=== PATIENT | female | born 1990 | race Caucasian/White ===

== ENCOUNTER 2020-01-05 12:02 | Inpatient (IN) | payer MEDICAID ==
[~2020-01-05] VITALS: Ht 172.7 cm; Wt 79.4 kg
[2020-01-26 20:43] VITALS: BP 123/81; Ht 172.7 cm; Wt 79.4 kg
[2020-01-26 21:20] LABS: HEMATOCRIT 27.1 % (36.0-48.0); HEMOGLOBIN 8.6 g/dL (12-16); MCH 25.7 pg (26.0-34.0); MCHC 31.7 g/dL (31.0-37.0); MCV 81.1 fL (80.0-100.0); MEAN PLATELET VOLUME 10.6 fL (7.4-10.4); RBC 3.34 10x6/uL (4.00-5.40); RDW 15.4 % (11.5-14.5); WBC 8.2 10x3/uL (4.8-10.8)
[2020-01-26 21:30] LABS: UDS - AMPHET NEGATIVE QUAL (NEGATIVE); UDS - BARB NEGATIVE QUAL (NEGATIVE); UDS - BENZO NEGATIVE QUAL (NEGATIVE); UDS - COCAINE NEGATIVE QUAL (NEGATIVE); UDS - OPIATE NEGATIVE QUAL (NEGATIVE); UDS - PCP NEGATIVE QUAL (NEGATIVE); UDS - THC NEGATIVE QUAL (NEGATIVE)
--- NOTE | 2020-01-27 17:28 | MORECARE ---
CASE MANAGEMENT DISCHARGE SUMMARY PATIENT: DIYA EASTMAN UNIT: [id number] ADM DATE: 01/26/20 AGE: 29 : 89 SEX: F ROOM/BED: D.1274 AUTHOR: ELÍAS CAM PHYSICIAN: REFERRING PHYSICIAN: CARMELLA MERLOS MD DATE OF SERVICE: 01/27/20 Discharge Plan Patient Name: DIYA EASTMAN Facility: [facility]:[place] : 1990 Planned Disposition: Home Anticipated Discharge Date: Discharge Date: Expected LOS: Initial Reviewer: [email or web address] Initial Review Date: 01/26/2020 Generated: 01/27/20 6:27 pm Patient Name: DIYA EASTMAN Page [id number] at 1728 All edits/amendments must be made on the electronic document DICTATION DATE: 01/27/201726 MACHINE LEATHER TRIMMER: ANA 01/27/201726 RPT#: [id number] LA DATE: STATUS: ADM IN [facility] [address] [place] [address] END OF REPORT
--- NOTE | 2020-01-28 01:30 | NUR ---
states needs to void, but still admits to numbness in ble,assisted on to bedpain, voided 700ml, pericare given, ice pack applied, assisted w/ latch of to left breast football hold,
--- NOTE | 2020-01-28 04:45 | NUR ---
to room to assist w/ , pt states needs to go to br. assisted up, steady gait, voided qs, ahmet bottle instructions given and pt demonstrated proper use w/ front to back spray, tucks and dermablast given fresh ice pack applied, labia remain edematous.returned to bed, epidural cath removed and site covered w/ bandaid. assisted w/ latch to right breast. fundus firm, u-2, lochia scant
[2020-01-28 05:38] LABS: HEMATOCRIT 25.6 % (36.0-48.0); HEMOGLOBIN 7.9 g/dL (12-16); MCH 25.2 pg (26.0-34.0); MCHC 30.9 g/dL (31.0-37.0); MCV 81.5 fL (80.0-100.0); RBC 3.14 10x6/uL (4.00-5.40); RDW 15.6 % (11.5-14.5)
[2020-01-28 05:41] LABS: WBC 14.5 10x3/uL (4.8-10.8)
[2020-01-28 06:10] LABS: RAPID PLASMA REAGIN Non Reactive (Non Reactive)
--- NOTE | 2020-01-28 08:30 | NUR ---
THIS RN TO ROOM FOR SHIFT ASSESSMENT. PT SITTING UP IN BED, EATING BREAKFAST. DENIES PAIN OR ANY NEEDS. WILL ALLOW PT TO FINISH EATING BREAKFAST AND RETURN FOR SHIFT ASSESSMENT.
[2020-01-28 09:28] VITALS: BP 110/58
--- NOTE | 2020-01-28 09:28 | NUR ---
NURSERY RN TO UNIT DESK STATING PT IS REQUESTING ASSIST UP TO BR. THIS RN TO ROOM. PT SITTING UP IN BED, STATES SHE WANTED NURSE IN ROOM TO GET UP TO BR BECAUSE HER LEGS "STILL FEEL A LITTLE WEIRD" POST EPIDURAL, AND SHE HAS WORSENING PERINEAL PAIN WHEN AMBULATING. SHIFT ASSESSMENT COMPLETED, VS OBTAINED, SEE FLOWSHEET FOR DOC. HR NOTED TO BE 107. PT DENIES FEELING DIZZY OR LIGHTHEADED WHEN UP AMBULATING. TEMP NOTED TO BE 99.1, PT STATES "OH YEAH, I'VE HAD A HEATING PAD ON FOR A WHILE"; NOTED TO BE BEHIND PT'S LOWER BACK. PT C/O PAIN IN PERINEUM AND ABD CRAMPING, REQUESTING PAIN MED. TYLENOL #3, 1 TAB, ADMIN ORDERED. SEE EMAR FOR DOC. MED TIMES UPDATED ON WHITE BOARD. FF, ML, U/1. SMALL RUBRA LOCHIA, NO CLOTS. SEVERE LABIAL SWELLING NOTED, RIGHT LABIA NOTIBLY MORE SWOLLEN. GENERALIZED EDEMA NOTED IN LOWER AND UPPER EXTREMITIES BILAT, NON-PITTING. NO FACIAL EDEMA SEEN. PT ASSISTED UP TO BR, VOIDS LARGE AMOUNT UNMEASURED URINE. PERICARE DONE PER PT WITH PERIBOTTLE. NEW ICE PACK PAD PLACED, TUCKS PADS AND DERMABPLAST USED. PT AMBULATES BACK TO BED. FRESH ICE WATER AND CUP OF ICE PROVIDED PER REQUEST. PT DENIES FURTHER NEEDS. LIGHTS IN ROOM DIM FOR REST, PT STATES SHE HAS NOT YET SLEPT SINCE DELIVERY. SRUx2, CL IN REACH. INFANT RESTING IN [place]. FOB ON BEDSIDE COUCH.
--- NOTE | 2020-01-28 11:11 | NUR ---
THIS RN TO ROOM FOR PT CHECK. PT REQUESTING PRN TORADOL, RATES PERINEAL PAIN AND PRESSURE /10. TORADOL ADMIN ORDERED, SEE EMAR FOR DOC. PT REQUESTING TO NURSERY SO SHE CAN NAP. LIGHTS IN ROOM DIM, SRUx2, CL IN REACH. [facility] RN.
--- NOTE | 2020-01-28 11:58 | NUR ---
DR DEE TO ROOM FOR ROUNDING, CHECKING FOR VAGINAL HEMATOMA. STATES NO HEMATOMA SEEN, JUST SWELLING. PT JYOTI WELL. HR AND TEMP REVIEWED, WELL AM LABS. DR DEE STATES SHE WILL ORDER IRON SUPPLEMENT AND STOOL SOFTENER.
[2020-01-28 12:03] VITALS: BP 105/57
--- NOTE | 2020-01-28 12:03 | NUR ---
VSS, SEE FLOWSHEET FOR DOC. PT C/O PAIN AT RIGHT HAND/WRIST PIV, REQUESTS IT TO BE REMOVED. SLIGHT REDNESS NOTED AT INSERTIONS SITE. AM LABS REVIEWED, PT CONTINUES TO DENY DIZZINESS OR FEELING LIGHT HEADED WHEN UP TO BR. PIV REMOVED WIHTOUT INCIDENT. PRESSURE HELD, BANDAID APPLIED. PT SITS UP IN BED TO EAT LUNCH, DENIES NEEDS. SRUx2, CL IN REACH.
--- NOTE | 2020-01-28 14:55 | NUR ---
PT CALLS OUT ENGINE WATCHMAN LIGHT REQUESTING INFANT BE TAKEN TO NURSERY SO SHE CAN NAP. THIS RN TO ROOM. PT STATES SHE NURSED AND CHANGED HER DIAPER, WROTE BOTH ON THE FLOWSHEET FOR NURSERY. PT DENIES NEEDS. Mickey, CL IN REACH. FOB IN ROOM. TRANSFERRED TO NURSERY VIA [place], TO CARE OF NURSERY RN.
--- NOTE | 2020-01-28 17:00 | NUR ---
THIS RN TO ROOM PER PT REQUEST SLAG WORKER LIGHT. PT UP TO BR CHANGING PERIPAD AND PANTIES. PT REQUESTS NEW ICE PACK FOR PERINEUM. ICE PACK PROVIDED WITH TUCKS PADS AND DERMAPLAST. PT AMBULATES BACK TO BED. DENIES NEEDS. SRUx2, CL IN REACH. SIG OTHER ON BEDSIDE ON COUCH HOLDING .
--- NOTE | 2020-01-28 17:21 | NUR ---
PT CALLS OUT REQUESTING TORADOL FOR PAIN. THIS RN TO ROOM, TORADOL ADMIN ORDERED PRN. PT DENIES FURTHER NEEDS. MED TIMES UPDATED ON WHITE BOARD. SRUx2, CL IN REACH.
--- NOTE | 2020-01-28 18:18 | NUR ---
pt using call light to request prn pain med, states "i'm having some pain i'm ready to take my pill." same provided, no other needs voiced at this time, call light in easy reach, bed in low position, bed brakes locked. continue to monitor.
--- NOTE | 2020-01-28 19:20 | NUR ---
PT RESTING QUIETLY WITH EYES CLOSED, NO DISTRESS NOTED. S/O AT BEDSIDE HOLDING .
--- NOTE | 2020-01-28 19:45 | NUR ---
ASSESSMENT COMPLETE. BREASTS SOFT NIPPLES CRACKED LANOLIN GIVEN FOR COMFORT. LUNG SOUNDS CLEAR BILATERALLY, HEART RATE REG, ABD SOFT FUNDUS FIRM ML AT UMBILICUS. LABIAL REMAINS SWOLLEN. ICE PACK TO PERINEUM. PT UP VOIDING WITHOUT DIFFICUTLY. AND S/O AT BEDSIDE.
[2020-01-28 20:15] VITALS: BP 112/55
--- NOTE | 2020-01-28 22:00 | NUR ---
PT SITTING UP EATING DINNER WITH S/O IN [facility]
--- NOTE | 2020-01-29 00:23 | NUR ---
PT UP TO SHOWER, FRESH ICE PACK APPLIED WITH TUCKS AND DERMOPLAST TO PERINEUM. PT BACK TO BED WITHOUT DIFFICULTY. S/O AND AT BEDSIDE.
--- NOTE | 2020-01-29 07:30 | NUR ---
AM ASSESSMENT COMPLETED CHARTED TO FLOWSHEET. PT DENIES CLOTS WITH VOIDS, ADDITIONAL BEV PADS PLACED IN BATHROOM. ENCOURAGED HER TO GET UP AND WALK AROUND ROOM TO HELP WITH C/O SORENESS. TO BREAST AT THIS TIME, PT RATES HER PAIN AT 8/10, TORDAL GIVEN ORDERED, SCANNED TO EMAR. NO QUESTIONS AT THIS TIME. CALL LIGHT IN REACH WITH SIDE RAILS UP X 2.
--- NOTE | 2020-01-29 08:08 | NUR ---
PAIN REASSESSMENT, RATES AT 4/10 BUT COMPLAINS MORE OF HEADACHE THAT HAS BEEN PRESENT PRIOR TO DELIVERY PER PT. CAFFEINE DRINK OFFERED BUT SHE REFUSES STATING "I'M " WILL CALL IF SHE CHANGES HER MIND.
--- NOTE | 2020-01-29 10:00 | NUR ---
RATES PAIN AT 4/10, TYLENOL #3 GIVEN REQUESTED, SEE EMAR. PT IS ATTEMPTING TO BREAST FEED AND REQUEST THAT NURSERY NURSE BE CALLED FOR ASSISSTANCE IF POSSIBLE. NURSERY CALLED FROM BEDSIDE, AND PT SHOWN NUMBER ON HER WHITEBOARD. CALL LIGHT IN REACH.
--- NOTE | 2020-01-29 11:30 | NUR ---
PAIN REASSESSMENT, RATES AT 2/10. INFANT IN CRIB AT BEDSIDE, LIGHTS TURNED DOWN AND PT ENCOURAGED TO TRY AND NAP WHILE IS SLEEPING. SIDE RAILS UP X 2 WITH CALL LIGHT IN REACH.
--- NOTE | 2020-01-29 14:00 | NUR ---
EDUCATION/TEACHING GIVEN AND GONE OVER ABOUT ROOMING IN, PT IS AGREEABLE AND PROVIDED WITH CONSENT AND POLICY TO REVIEW. SHE RATES PAIN AT 5/10 AND REQUEST PAIN MED.
--- NOTE | 2020-01-29 14:25 | NUR ---
MEDS GIVEN SCANNED TO EMAR. INFANT BACK TO BREAST AT THIS TIME. SIG OTHER AT BESIDE, SIDE RAILS UP X 2 WITH CALL LIGHT IN REACH.
--- NOTE | 2020-01-29 14:45 | NUR ---
SIG OTHER OUT TO DESK STATING THAT "SHE JUST THREW ALL THAT MEDICINE UP" THIS RN TO BEDSIDE. APPROX 50CC OF CLEAR FROTHY LIQUID NOTED TO EMESIN BAG, NOTHING THAT LOOKED LIKE MEDS NOTED. REASSURED PT THAT NO MEDS WHERE PRESENT. SHE IS PERSISTANT THAT SHE THREW THEM UP, OFFERED TO GIVE TYLENOL #3 SINCE SHE COULD HAVE 2 TABLETS BUT ONLY TOOK ONE BUT WOULD NEED TO WAIT UNTIL TORDAL WAS DUE AGAIN. SHE DENIES AT THIS TIME.
--- NOTE | 2020-01-29 15:30 | NUR ---
PT RESTING AT THIS TIME, SIG OTHER HOLDING .
--- NOTE | 2020-01-29 16:30 | NUR ---
PT ASKING ABOUT D/C INSTRUCTIONS, STATES SHE IS FEELING BETTER. ALSO ASK FOR LARGE ICE WATER AND JELLO.
--- NOTE | 2020-01-29 16:45 | NUR ---
DISCHARGE INSTRUCTIONS GONE OVER VERBALLY AND WRITTEN. STATES UNDERSTANDING TO OVER THE COUNTER PAIN CONTROL WITH MOTRIN AND/OR TYLENOL. WILL CALL IN THE AM TO SET UP 6WEEK PP APPOINTMENT WITH CHEL[facility]. DENIES QUESTIONS OR CONCERNS. INFANT TO BREAST AT THIS TIME, SHE WILL CALL WHEN READY TO TRANSFER OUT.
--- NOTE | 2020-01-29 18:00 | NUR ---
PT AMB WITH INFANT IN CRIB AND SIG OTHER TO ROOM 1222 ON WOMEN SERVICES. ORIENT TO ROOM, NURSERY MADE AWARE OF TRANSFER.
--- NOTE | 2020-01-30 09:10 | MORECARE ---
CASE MANAGEMENT DISCHARGE SUMMARY PATIENT: DIYA EASTMAN UNIT: [id number] ADM DATE: 01/26/20 AGE: 29 : 89 SEX: F ROOM/BED: D.1274 AUTHOR: ELÍAS CAM PHYSICIAN: REFERRING PHYSICIAN: CARMELLA MERLOS MD DATE OF SERVICE: 01/30/20 Discharge Plan Patient Name: DI[facility] EASTMAN [facility] [facility] 1990 Planned Disposition: Home Anticipated Discharge Date: Discharge Date: 01/29/2020 Expected LOS: Initial Reviewer: [id number] Initial Review Date: 01/26/2020 Generated: 01/30/20 10:09 am Last DP export: 01/27/20 4:28 p Patient Name: DIYA EASTMAN Page [id number] at 0910 All edits/amendments must be made on the electronic document DICTATION DATE: 01/30/20908 GLUED WOOD TESTER: DM 01/30/20908 RPT#: [id number] DC DATE:01/29/20 STATUS: DIS IN [facility] [address] [place] [address] END OF REPORT
== END 2020-01-29 18:00 | disposition home or self-care (01) | DRG 807 ==
LOC: D.LD 01-26 20:21
PROVIDERS: ADMIT Obstetrics & Gynecology; ATTEND Obstetrics & Gynecology
PROC: 10E0XZZ Delivery of Products of Conception, External Approach (ICD-10-PCS; principal; 2020-01-27)
PROC: 3E033VJ Introduction of Other Hormone into Peripheral Vein, Percutaneous Approach (ICD-10-PCS; 2020-01-27)
DX: O99.824 Streptococcus B carrier state complicating childbirth (principal); Z37.0 Single live birth; O70.0 First degree perineal laceration during delivery; Z3A.40 40 weeks gestation of pregnancy

== ENCOUNTER 2020-10-22 11:39 | Emergency (ER) | payer MEDICAID ==
[~2020-10-22] VITALS: Ht 172.7 cm; Wt 65.9 kg
[2020-10-22 11:41] VITALS: BP 117/74; Ht 172.7 cm; Wt 65.9 kg
[2020-10-22] MEDS ORDERED: VISTARIL50 MG PO (11:42)
[2020-10-22 12:53] LABS: UDS - AMPHET NEGATIVE QUAL (NEGATIVE); UDS - BARB NEGATIVE QUAL (NEGATIVE); UDS - BENZO NEGATIVE QUAL (NEGATIVE); UDS - COCAINE NEGATIVE QUAL (NEGATIVE); UDS - OPIATE NEGATIVE QUAL (NEGATIVE); UDS - PCP NEGATIVE QUAL (NEGATIVE); UDS - THC POSITIVE QUAL (NEGATIVE)
[2020-10-22 12:59] LABS: BACTERIA FEW HPF (<MOD); BILIRUBIN NEGATIVE (NEGATIVE); KETONE 1+ mg/dL (< 1+); NITRITE NEGATIVE (NEGATIVE); PH 6.5 (5.0-8.0); SQUAMOUS EPITHELIAL 2 HPF (0-4); UROBILINOGEN NORMAL mg/dL (< 2); WHITE CELLS - URINE 2 HPF (0-4)
[2020-10-22 13:00] LABS: AMORPHOUS SEDIMENT OCC LPF (<FEW)
[2020-10-22 13:11] LABS: BASOPHILS 0.3 % (0-2); EOSINOPHILS 0 % (0-7); HEMATOCRIT 35.3 % (36.0-48.0); HEMOGLOBIN 11.4 g/dL (12-16); LYMPHOCYTES 12.3 % (15-50); MCH 29.8 pg (26.0-34.0); MCHC 32.4 g/dL (31.0-37.0); MCV 91.9 fL (80.0-100.0); MEAN PLATELET VOLUME 7.3 fL (7.4-10.4); MONOCYTES 4.1 % (2-11); NEUTROPHILS 83.3 % (40-80); RBC 3.84 10x6/uL (4.00-5.40); RDW 18.3 % (11.5-14.5); WBC 10.2 10x3/uL (4.8-10.8)
[2020-10-22 13:18] LABS: PLATELET COUNT 271 10x3/uL (130-400)
[2020-10-22 13:19] LABS: CALC OSMOLALITY 283 mosm/kg (275-300); CALCIUM 7.8 mg/dL (8.5-10.1); CARBON DIOXIDE 18.6 mmol/L (21.0-32.0); CHLORIDE - SERUM 106 mmol/L (98-107); CREATININE - SERUM 0.7 mg/dL (0.6-1.3); GLUCOSE 104 mg/dL (74-106); POTASSIUM - SERUM 3.2 mmol/L (3.5-5.1); SODIUM 143 mmol/L (136-145); UREA NITROGEN 10 mg/dL (7-18); eGFR NON AFRICAN AMERICAN > 90 mL/min (90-120)
[2020-10-22 13:25] LABS: ALBUMIN 3.6 g/dL (3.4-5.0); ALKALINE PHOSPHATASE 104 U/L (30-120); ALT (SGPT) 25 U/L (10-68); BILIRUBIN - TOTAL 0.19 mg/dL (0.2-1.3); PROTEIN - SERUM 7.1 g/dL (6.4-8.2)
[2020-10-22] MEDS ORDERED: ZOFRAN ODT4 MG/UDTAB PO (17:41)
== END 2020-10-22 17:55 | disposition home or self-care (01) ==
LOC: D.ER 11:39
PROVIDERS: Emergency Medicine
DX: F19.10 Other psychoactive substance abuse, uncomplicated (principal); F10.129 Alcohol abuse with intoxication, unspecified; Y90.6 Blood alcohol level of 120-199 mg/100 ml; J45.909 Unspecified asthma, uncomplicated; K21.9 Gastro-esophageal reflux disease without esophagitis